=== PATIENT | female | born 1945 | race Caucasian/White ===

== ENCOUNTER 2016-11-07 08:32 | Day surgery (SDC) | payer MEDICARE, MEDICAID ==
[~2016-11-07] VITALS: Ht 172.7 cm; Wt 95.2 kg
[~2016-11-07 08:32] MED LIST: 0.9% Sodium Chloride 1,000 ML IV SCH; ACYC200C PO; ANAS1TAB7 PO; ATEN50TA PO; CITA20TA11 PO; Sodium Chloride LOK Flush 10 mL Syringe IV PRN; fentaNYL-PF 50 mCg/mL 2 mL Inj IVPUSH PRN
[2016-11-07 09:04] VITALS: BP 129/65; PULSE 57; RESP 14; O2SAT 98
[2016-11-07 10:09] VITALS: BP 121/65; PULSE 54; RESP 16; O2SAT 94
[2016-11-07 10:19] VITALS: BP 116/64; PULSE 51; RESP 14; O2SAT 94
[2016-11-07 10:29] VITALS: BP 125/69; PULSE 58; RESP 16; O2SAT 93; O2SAT 96
--- NOTE | 2016-11-07 10:58 | ENDO ---
[address] [address] ENDOSCOPY PROCEDURE PATIENT: GOVIND HERNANDEZ : 1945 MR#: [id number] ADMIT: 11/07/2016 JOB ID: [id number] PRIMARY PROVIDER: SLY Ibarra PROCEDURE: Colonoscopy. INDICATIONS: A 71-year-old female with a personal history of colon polyp who has noted some red blood per rectum of late. EQUIPMENT: [id number]. SEDATION: 1. Versed 3 mg. 2. Fentanyl 75 mcg. COMPLICATIONS: None identified. BOWEL PREPARATION: Fair at best. PROCEDURE INFO: After the risks and benefits were explained, written and verbal informed consent was obtained. The patient was brought into the Endoscopy Suite and placed into the left lateral decubitus position. Sedation was achieved as above. A digital rectal examination disclosed grade 3 internal external nonbleeding, non-thrombosed hemorrhoids. The scope was then introduced into the rectum and advanced to the cecum as identified by the appendiceal orifice and ileocecal valve. The scope was slowly withdrawn to carefully examine the mucosa for any defects or lesions. Multiple direct views were made through the dentate line for exclusion of pathology. The colon was decompressed. The scope removed from the patient who tolerated the procedure well. Within the limitations of bowel prep I did not appreciate any polyps, mass, lesions, or inflammatory features identified throughout. The patient had extensive diverticulosis through the left colon. ENDOSCOPIC DIAGNOSES: 1. Diverticulosis. 2. Grade 3 hemorrhoids. RECOMMENDATIONS: 1. Repeat colonoscopy 5 years considering personal history of colon polyps. 2. Fiber supplementation to facilitate soft, regular bowel movements and hopefully avoid straining. 3. Intermittent Epsom salt baths p.r.n. 4. Preparation H suppository and/or cooling gel p.r.n. 5. Surgical consultation p.r.n.
== END 2016-11-07 23:59 | disposition home or self-care (01) ==
LOC: END 08:32
PROVIDERS: ATTEND Internal Medicine Gastroenterology
DX: K62.5 Hemorrhage of anus and rectum (principal); K57.30 Diverticulosis of large intestine without perforation or abscess without bleeding; K64.2 Third degree hemorrhoids; K64.4 Residual hemorrhoidal skin tags; Z86.010 Personal history of colon polyps; I10 Essential (primary) hypertension; K21.9 Gastro-esophageal reflux disease without esophagitis; D75.1 Secondary polycythemia
CPT/HCPCS: 45378; G0500; J7030